=== PATIENT | female | born 1995 | race Caucasian/White ===

== ENCOUNTER 2020-08-25 06:44 | Emergency (ER) | payer OTHER ==
[2020-08-25 07:21] VITALS: BP 115/70; TEMP 98.6; BMI 32.8
[2020-08-25] MEDS ORDERED: SODIUM CHLORIDE 1,000 ML IV STA (08:17)
[2020-08-25] MEDS ORDERED: ACETAMINOPHEN 1000 MG/100 ML VIAL (NON FORMULARY) IVPB ONE (08:17)
[2020-08-25] MEDS ORDERED: ACETAMINOPHEN INJECTION 100 ML IVPB ONE (09:39)
[2020-08-25 10:52] LABS: POTASSIUM 4.5 mmol/L (3.5-5.1)
[2020-08-25 10:53] LABS: CALCIUM 9.1 mg/dL (8.5-10.1)
[2020-08-25 10:54] LABS: ALBUMIN 4.3 g/dl (3.4-5.0); BLOOD UREA NITROGEN 8.2 mg/dL (7-18)
[2020-08-25 10:57] LABS: CREATININE 0.7 mg/dL (0.55-1.3)
[2020-08-25 10:58] LABS: BASO % 0.1 % (0-2.0); HEMATOCRIT 38.8 % (32.4-45.2); HEMOGLOBIN 13.2 GM/dL (10.7-15.3); LYMPH % 5.5 % (8-40); MCH 30.3 pg (25.7-33.7); MCHC 33.9 g/dl (32.0-36.0); MEAN CELL VOLUME 89.2 fl (80-96); MEAN PLT VOLUME 9.1 fl (7.5-11.1); NEUT % 92.4 % (42.8-82.8); PLATELET COUNT 333 K/MM3 (134-434); RBC 4.35 M/mm3 (3.60-5.2); RDW 13.4 % (11.6-15.6); WHITE BLOOD COUNT 14.8 K/mm3 (4.0-10.0)
[2020-08-25 10:59] LABS: BILIRUBIN,TOTAL 0.4 mg/dL (0.2-1); TOT PROT 7.8 g/dl (6.4-8.2)
[2020-08-25 11:52] LABS: ANISOCYTOSIS 0; MACROCYTOSIS 0; PLATELET ESTIMATE NORMAL
[2020-08-25 12:00] LABS: EPI CELLS 30 /uL (0-25.1); HYALINE CASTS 1 /uL (0-3.1); URINE APPEARANCE CLOUDY; URINE BACTERIA 820 /uL (0-1359); URINE BILIRUBIN NEGATIVE (NEGATIVE); URINE COLOR YELLOW; URINE GLUCOSE (UA) NEGATIVE (NEGATIVE); URINE KETONE 1+ (NEGATIVE); URINE LEUK ESTERASE NEGATIVE (NEGATIVE); URINE NITRITE NEGATIVE (NEGATIVE); URINE PROTEIN NEGATIVE (NEGATIVE); URINE UROBILINOGEN 0.2 mg/dL (0.2-1.0); URINE WBC 11 /uL (0-25.8)
[2020-08-25 12:58] VITALS: PULSE 90
== END 2020-08-25 12:58 | disposition home or self-care (01) ==
LOC: JER 06:44
PROC: 3E033GC Introduction of Other Therapeutic Substance into Peripheral Vein, Percutaneous Approach (ICD-10-PCS; principal; 2020-08-25)
PROC: 3E0337Z Introduction of Electrolytic and Water Balance Substance into Peripheral Vein, Percutaneous Approach (ICD-10-PCS; principal; 2020-08-25)
DX: O20.9 Hemorrhage in early pregnancy, unspecified (principal); Z3A.00 Weeks of gestation of pregnancy not specified
CPT/HCPCS: 36415; 76817-TC; 80053; 81003; 84702; 85025; 86850; 86900; 86901; 87086; 96361; 96374; 99284-25; C9803; J0131; U0003

== ENCOUNTER 2020-08-26 04:57 | Day surgery (SDC) | payer OTHER ==
[2020-08-26 05:44] VITALS: BMI 30.9
[2020-08-26 06:37] LABS: BASO % 0.4 % (0-2.0); HEMATOCRIT 27.5 % (32.4-45.2); HEMOGLOBIN 9.2 GM/dL (10.7-15.3); LYMPH % 4.9 % (8-40); MCH 29.9 pg (25.7-33.7); MCHC 33.3 g/dl (32.0-36.0); MEAN CELL VOLUME 89.9 fl (80-96); MEAN PLT VOLUME 8.8 fl (7.5-11.1); MONO % 4.5 % (3.8-10.2); NEUT % 90.2 % (42.8-82.8); PLATELET COUNT 259 K/MM3 (134-434); RBC 3.06 M/mm3 (3.60-5.2); RDW 13.3 % (11.6-15.6); WHITE BLOOD COUNT 15.9 K/mm3 (4.0-10.0)
[2020-08-26 06:52] LABS: CALCIUM 8.1 mg/dL (8.5-10.1)
[2020-08-26 06:53] LABS: ALBUMIN 3.6 g/dl (3.4-5.0)
[2020-08-26 06:56] LABS: CREATININE 0.7 mg/dL (0.55-1.3)
[2020-08-26 06:57] LABS: BILIRUBIN,TOTAL 0.4 mg/dL (0.2-1); TOT PROT 6.6 g/dl (6.4-8.2)
[2020-08-26] MEDS ORDERED: ACETAMINOPHEN 1000 MG/100 ML VIAL (NON FORMULARY) IVPB ONE (07:32)
[2020-08-26] MEDS ORDERED: ACETAMINOPHEN INJECTION 100 ML IVPB ONE (07:59)
[2020-08-26] MEDS ORDERED: LACTATED RINGERS SOLUTION 1000 ML INFUS.BAG IV ONE (08:16)
[2020-08-26 08:55] LABS: INR 1.08 (0.83-1.09); PROTHROMBIN TIME (PATIENT) 13.3 SEC (9.7-13.0)
[2020-08-26 08:58] LABS: ACTIVATED PTT 23.1 SECONDS (25.2-36.5)
[2020-08-26] MEDS ORDERED: BUPIVACAINE HCL 100 ML ONE (10:30)
[2020-08-26] MEDS ORDERED: ROCURONIUM BROMIDE 50 MG/5 ML SYRINGE ONE (10:33)
[2020-08-26] MEDS ORDERED: LIDOCAINE HCL/PF 2% SDV 5ML VIAL ONE (10:33)
[2020-08-26] MEDS ORDERED: SUCCINYLCHOLINE CHLORIDE 200 MG/10 ML SYRINGE ONE (10:33)
[2020-08-26] MEDS ORDERED: LIDOCAINE HCL 2% JELLY (5 ML/TUBE) ONE (10:33)
[2020-08-26] MEDS ORDERED: GLYCOPYRROLATE 0.2 MG/1 ML VIAL ONE ×2 (10:33→12:10)
[2020-08-26] MEDS ORDERED: ceFAZolin SODIUM 1 GM VIAL ONE (10:33)
[2020-08-26] MEDS ORDERED: DEXAMETHASONE SOD PHOSPHATE 4 MG/1 ML VIAL ONE (10:33)
[2020-08-26] MEDS ORDERED: fentaNYL CITRATE 250 MCG/5 ML VIAL ONE (10:33)
[2020-08-26] MEDS ORDERED: MIDAZOLAM HCL 2 MG/2 ML SINGLE DOSE VIAL ONE ×2 (10:34→12:25)
[2020-08-26] MEDS ORDERED: PROPOFOL 20 ML ONE ×4 (10:35→12:25)
[2020-08-26] MEDS ORDERED: ceFAZolin SODIUM 1 GM VIAL IVPB ONE (11:05)
[2020-08-26] MEDS ORDERED: ONDANSETRON 4 MG/2 ML VIAL IVPUSH PRN (11:35)
[2020-08-26] MEDS ORDERED: oxyCODONE HCL 5 MG TABLET PO PRN ×2 (11:35)
[2020-08-26] MEDS ORDERED: LACTATED RINGERS SOLUTION 1,000 ML IV SCH (11:45)
[2020-08-26] MEDS ORDERED: KETOROLAC TROMETHAMINE 30 MG/1 ML VIAL ONE (12:05)
[2020-08-26] MEDS ORDERED: LIDOCAINE HCL 4% TOPICAL SOLN (50 ML/BOTTLE) ONE (12:10)
[2020-08-26] MEDS ORDERED: NEOSTIGMINE METHYLSULFATE 0.5 MG/ML - 10 ML MDV ONE (12:10)
[2020-08-26] MEDS ORDERED: HYDROmorphone HCl 2 MG/ML VIAL ONE (12:30)
[2020-08-26] MEDS ORDERED: BUPIVACAINE HCL/PF 0.5% (5 MG/ML) 30 ML VIAL IJ ONE (12:37)
[2020-08-26] MEDS ORDERED: ACETAMINOPHEN 1000 MG/100 ML VIAL (NON FORMULARY) IVPB PRN (12:43)
[2020-08-26] MEDS ORDERED: IBUPROFEN 600 MG TABLET (FP) PO PRN (12:45)
[2020-08-26] MEDS ORDERED: DEXTROSE 5%-LACTATED RINGERS 1,000 ML IV SCH (12:45)
[2020-08-26] MEDS ORDERED: METOPROLOL TARTRATE 5 MG/5 ML VIAL ONE (12:46)
[2020-08-26 14:37] LABS: BASO % 0.2 % (0-2.0); HEMATOCRIT 24.8 % (32.4-45.2); HEMOGLOBIN 8.3 GM/dL (10.7-15.3); LYMPH % 5.5 % (8-40); MCH 30.1 pg (25.7-33.7); MCHC 33.4 g/dl (32.0-36.0); MEAN CELL VOLUME 90.3 fl (80-96); MEAN PLT VOLUME 9.1 fl (7.5-11.1); MONO % 3.1 % (3.8-10.2); NEUT % 91.2 % (42.8-82.8); PLATELET COUNT 229 K/MM3 (134-434); RBC 2.74 M/mm3 (3.60-5.2); RDW 13.5 % (11.6-15.6)
[2020-08-26 15:38] LABS: ANISOCYTOSIS 1+; MACROCYTOSIS 0; PLATELET ESTIMATE NORMAL; TARGET CELLS 1+
[2020-08-26 17:42] VITALS: BP 112/63; PULSE 92; TEMP 97.8
== END 2020-08-26 18:00 | disposition home or self-care (01) ==
LOC: JER 04:57 → JASUSAT 09:44
PROVIDERS: ATTEND Obstetrics & Gynecology
PROC: 3E03329 Introduction of Other Anti-infective into Peripheral Vein, Percutaneous Approach (ICD-10-PCS; 2020-08-26)
PROC: 3E033NZ Introduction of Analgesics, Hypnotics, Sedatives into Peripheral Vein, Percutaneous Approach (ICD-10-PCS; 2020-08-26)
PROC: 3E033GC Introduction of Other Therapeutic Substance into Peripheral Vein, Percutaneous Approach (ICD-10-PCS; 2020-08-26)
PROC: 3E0333Z Introduction of Anti-inflammatory into Peripheral Vein, Percutaneous Approach (ICD-10-PCS; principal; 2020-08-26 11:00)
DX: O00.90 Unspecified ectopic pregnancy without intrauterine pregnancy (principal); O26.851 Spotting complicating pregnancy, first trimester; Z3A.01 Less than 8 weeks gestation of pregnancy
CPT/HCPCS: 36415; 76817-TC; 80053; 84702; 85025; 85610; 85730; 86850; 86900; 86901; 86922; 88305-TC; 93005; 93010; 94760; 96374; 96375; 99291; J0131